=== PATIENT | female | born 1980 | race Caucasian/White ===

== ENCOUNTER 2016-10-16 12:03 | Inpatient (IN) | payer OTHER ==
[2016-10-11 17:25] LABS: BASOPHILS 0.3 %; BASOPHILS ABSOLUTE 0.04 10/3/uL (0.0-0.16); EOSINOPHILS 3.2 %; EOSINOPHILS ABSOLUTE 0.47 10/3/uL (0.0-0.53); HEMATOCRIT 34.7 % (36.0-48.0); IMMATURE GRANULOCYTES 0.4 %; IMMATURE GRANULOCYTES ABSOLUTE 0.06 10/3/uL (0.0-0.11); LYMPHOCYTES ABSOLUTE 4.38 10/3/uL (0.67-4.30); MEAN CORPUS HGB CONC 31.7 g/dL (32.0-36.0); MEAN CORPUSCULAR HEMOGLOB 24.7 pg (26.0-34.0); MEAN PLATELET VOLUME 9.3 fL (9.2-13.0); MONOCYTES 4.8 %; NEUTROPHILS 61.3 %; NEUTROPHILS ABSOLUTE 8.93 10/3/uL (2.02-8.40); PLATELET COUNT 345 10/3/uL (150-400); RBC DISTRIBUTION WIDTH 16.8 % (12.0-16.0); RED CELL COUNT 4.45 10/6/uL (4.0-5.6); WHITE BLOOD CELLS 14.6 10/3/uL (4.5-10.5)
[2016-10-11 17:32] LABS: MANUAL DIFF NO %
[2016-10-11 17:36] LABS: INTERNATIONAL NORMAL RATI 1.1 UNITS (-); PARTIAL THROMBO TIME 36.5 SEC (22.5-37.2); PROTIME (NOT ORD) 13.9 SEC (12.0-14.5)
[2016-10-11 17:48] LABS: CALCIUM, SERUM 9.1 MG/DL (8.5-10.4); CHLORIDE, SERUM 106 MMOL/L (96-112); CO2 (CARBON DIOXIDE) 24 MMOL/L (24-34); GFR AFRICAN AMERICAN 131 ML/MIN (>=60); GFR NON AFRICAN AMERICAN 113 ML/MIN (>=60); GLUCOSE, SERUM 164 MG/DL (60-99); SODIUM, SERUM 140 MMOL/L (135-148)
[2016-10-11 17:49] LABS: BUN (BLOOD UREA NITROGEN) 14 MG/DL (6-23)
[2016-10-11 18:53] LABS: ASCORBIC ACID (UR NOT ORDER) NEG (NEG); BILIRUBIN, URINE NEGATIVE (NEG); KETONE, URINE NEGATIVE (NEG); LEUKOCYTE ESTERASE(NOT OR NEG (NEG); WBC (NOT ORDERED) (RFLEX) < 1 (0-5)
--- NOTE | ~2016-10-16 | OP ---
Record Of Operation [facility] [address] [place]. [address] NAME: DIONICIO NIXON : 84 STATUS : ADM Darlene PAT#: [id number] AGE: 36 ADM/REG DATE : 10/16/16 MR#: [id number] REPORT SERV DATE: 10/18/16 DICTATED BY: JOSEF LEHMAN DATE: 10/18/16 REPORT STATUS : Draft TRANSCRIBED BY: MODL DATE: 10/18/16 DATE OF PROCEDURE: 10/16/2016 PREOPERATIVE DIAGNOSIS: Microinvasive ovarian cancer. POSTOPERATIVE DIAGNOSIS: Microinvasive ovarian cancer. PROCEDURE: Robot assisted laparoscopic hysterectomy with right salpingo-oophorectomy, CPT code 20281. Bilateral pelvic and periaortic lymph node dissection, CPT code 44917. Omentectomy, CPT code 79356. Cystoscopy. SURGEON: Josef Lehman MD. ANESTHESIA: General. ESTIMATED BLOOD LOSS: 50 mL. CRYSTALLOID: 1200 mL. URINE OUTPUT: 400 mL. DRAINS: Gould. FINDINGS: No evidence of peritoneal, right ovarian, fallopian tube disease. Her omentum was grossly normal. There were some adhesions of the omentum to the anterior abdominal wall with no evidence of gross tumor. The peritoneal surfaces in the upper abdomen were examined and found to be normal in appearance. PATHOLOGY: Uterus, uterine cervix, right fallopian tube and ovary. Bilateral pelvic lymph nodes. Bilateral periaortic lymph nodes. Infracolic omentum. Pelvic washings. COMPLICATIONS: None. POSTOPERATIVE PLAN: Extubated to PACU. PROCEDURE IN DETAIL: After informed consent was signed, the patient was taken to the operating room and placed in dorsal supine position where adequate general anesthesia was administered. She was then placed in dorsal lithotomy position in [facility] and prepped and draped in the usual fashion and a Gould catheter was placed. The uterus was sounded, cervix dilated, and the ANYA uterine manipulator was assembled and deployed. The left upper quadrant incision was made with a scalpel and carried down to the fascia which was incised, muscle , posterior sheath entered sharply, trocar placed, and abdomen insufflated with CO2 gas. Additional robot trocars were placed in the supraumbilical region, the bilateral upper quadrants, and the right lateral flank, all under direct visualization. The patient was placed in steep Trendelenburg and the robot docked in the usual fashion. The pelvic peritoneum overlying the midportion of the right common iliac Record Of Operation [facility] [address] [place]. [address] NAME: DIONICIO NIXON : 84 STATUS : ADM Darlene PAT#: [id number] AGE: 36 ADM/REG DATE : 10/16/16 MR#: [id number] REPORT SERV DATE: 10/18/16 DICTATED BY: JOSEF LEHMAN DATE: 10/18/16 REPORT STATUS : Draft TRANSCRIBED BY: MONIKA DATE: 10/18/16 artery was incised and taken down to the level of the right common iliac artery. This incision was then extended up and over the right common iliac artery over the aorta to the level of the inferior mesenteric artery. Both ureters were identified and reflected laterally. All lymphatic tissue overlying the left and right sides of the aorta and anterior to the vena cava was removed using monopolar scissors and blunt dissection. These lymph nodes were taken out through the marketing administrative assistant port. Next, bilateral round ligaments were taken with bipolar cautery, transected with monopolar scissors, and the pelvic peritoneum taken down lateral and parallel to the infundibulopelvic ligaments. The remnant infundibulopelvic ligament on the left side as well as the IP ligament on the right side were isolated, taken with bipolar cautery, and transected with monopolar scissors, and the broad ligament taken down to the level of the cervix with the ureters identified and reflected medially. Clips were placed in the origins of the uterine arteries bilaterally. The posterior colpotomy was then made with monopolar scissors. Next, the vesicouterine peritoneum was incised and the bladder taken down well beneath the level of the anterior VIRGILIO ring and the anterior colpotomy was made. The uterine vessels were then taken at the cervix with bipolar cautery, transected with monopolar scissors, and the parametria reflected off the cervical stroma. The anterior and posterior colpotomy was then connected using monopolar scissors, and the uterus, uterine cervix, and right adnexa were then brought out through the vagina. Next, a complete pelvic lymphadenectomy was performed. Specifically all lymphatic tissue from the midportion of the common iliac arteries superiorly down to the deep circumflex iliac vein inferiorly, from the psoas muscles laterally to the superior vesical arteries medially, and the obturator nerves posteriorly removed using monopolar scissors and blunt dissection where appropriate. These lymph nodes were then placed into their respective EndoCatch bags and brought out through the vagina. Next, the transverse colon was identified and an infracolic omentectomy was performed in the usual fashion using bipolar cautery and monopolar scissors. The omentum was then brought out through the vagina. The pelvis was irrigated. Excellent hemostasis was noted. All lymphatic beds were then examined and found to be without evidence of bleeding. The vagina was then closed with 0 180 V-Loc suture with a running stitch. All instruments removed from the abdomen and the robot was undocked. The Gould catheter was removed and the cystoscope placed through the urethra and the bladder distended with appropriate media. Bilateral brisk ureteral jets were noted suggesting bilateral ureteral patency. The cystoscope was removed and the bladder drained. The CO2 gas was then reintroduced into the abdomen and using the laparoscope, the pelvis and all lymphatic beds were examined and found to be hemostatic. The laparoscope was then removed along with all trocars and the CO2 gas evacuated. The fascia from the left upper quadrant incision was closed with 0 Vicryl suture and the skin from all trocar sites was closed with 4-0 Monocryl and Dermabond. The patient tolerated the procedure well, was awakened, extubated, and sent to the PACU in stable condition. Record Of Operation [address] [address] NAME: DIONICIO NIXON : 84 STATUS : ADM Darlene PAT#: [id number] AGE: 36 ADM/REG DATE : 10/16/16 MR#: [id number] REPORT SERV DATE: 10/18/16 DICTATED BY: JOSEF LEHMAN DATE: 10/18/16 REPORT STATUS : Draft TRANSCRIBED BY: MONIKA DATE: 10/18/16 TL/MONIKA Josef Lehman MD / [id number] CC: MD JUWAN Wilkerson
[~2016-10-16 12:03] MED LIST: AMB10 PO; APIDRA SC; ESKALITH PO; GLUCOPHAGE1000 MG PO; IBU600 PO; LANTUS SC; LYRICA100 MG PO; METHOC750B PO; NEUR800 PO; NORCO1 TAB PO; PR25 PO; PRIN10 PO; VICTOZA18 MG/3 ML SC; [UNRECOGNIZED DRUG - CODE] PO
[2016-10-17 04:49] LABS: BASOPHILS 0.1 %; BASOPHILS ABSOLUTE 0.02 10/3/uL (0.0-0.16); EOSINOPHILS 0 %; HEMATOCRIT 31.6 % (36.0-48.0); HEMOGLOBIN 10.1 g/dL (12.0-16.0); IMMATURE GRANULOCYTES 0.5 %; IMMATURE GRANULOCYTES ABSOLUTE 0.08 10/3/uL (0.0-0.11); LYMPHOCYTES 14.3 %; LYMPHOCYTES ABSOLUTE 2.44 10/3/uL (0.67-4.30); MANUAL DIFF NO %; MEAN CORPUSCULAR HEMOGLOB 24.8 pg (26.0-34.0); MEAN CORPUSCULAR VOLUME 77.5 fL (80-100); MEAN PLATELET VOLUME 9.3 fL (9.2-13.0); MONOCYTES 5.6 %; MONOCYTES ABSOLUTE 0.95 10/3/uL (0.21-1.20); NEUTROPHILS 79.5 %; NEUTROPHILS ABSOLUTE 13.54 10/3/uL (2.02-8.40); PLATELET COUNT 335 10/3/uL (150-400); RBC DISTRIBUTION WIDTH 16.8 % (12.0-16.0); RED CELL COUNT 4.08 10/6/uL (4.0-5.6)
[2016-10-17 05:15] LABS: CALCIUM, SERUM 8.4 MG/DL (8.5-10.4); CHLORIDE, SERUM 110 MMOL/L (96-112); CO2 (CARBON DIOXIDE) 23 MMOL/L (24-34); CREATININE 0.72 MG/DL (0.55-1.02); GFR AFRICAN AMERICAN 127 ML/MIN (>=60); GFR NON AFRICAN AMERICAN 109 ML/MIN (>=60); POTASSIUM, SERUM 3.9 MMOL/L (3.5-5.3); SODIUM, SERUM 142 MMOL/L (135-148)
[2016-10-17 05:19] LABS: BUN (BLOOD UREA NITROGEN) 10 MG/DL (6-23); GLUCOSE, SERUM 226 MG/DL (60-99)
[2016-10-17] MEDS ORDERED: PCET PO (09:03)
[2016-10-17] MEDS ORDERED: DIL2TAB PO (09:04)
[2016-10-17] MEDS ORDERED: COMP10B PO (09:04)
[2016-10-19] MEDS ORDERED: PCET PO (12:04)
[2016-10-19] MEDS ORDERED: COMP10B PO (12:04)
== END 2016-10-19 13:37 | disposition home or self-care (01) | DRG 734 ==
LOC: SDC 12:03 → 4EA 18:54
PROVIDERS: Obstetrics & Gynecology Gynecology
PROC: 0UT04ZZ Resection of Right Ovary, Percutaneous Endoscopic Approach (ICD-10-PCS; 2016-10-16)
PROC: 07TC4ZZ Resection of Pelvis Lymphatic, Percutaneous Endoscopic Approach (ICD-10-PCS; 2016-10-16)
PROC: 0UT54ZZ Resection of Right Fallopian Tube, Percutaneous Endoscopic Approach (ICD-10-PCS; 2016-10-16)
PROC: 0DBS4ZZ (ICD-10-PCS; 2016-10-16)
PROC: 0UT94ZZ Resection of Uterus, Percutaneous Endoscopic Approach (ICD-10-PCS; principal; 2016-10-16 13:45)
PROC: 0UTC4ZZ Resection of Cervix, Percutaneous Endoscopic Approach (ICD-10-PCS; 2016-10-16 13:45)
DX: C56.9 Malignant neoplasm of unspecified ovary (principal); Z68.41 Body mass index [BMI] 40.0-44.9, adult; E11.42 Type 2 diabetes mellitus with diabetic polyneuropathy; N83.11 Corpus luteum cyst of right ovary; I10 Essential (primary) hypertension; K21.9 Gastro-esophageal reflux disease without esophagitis; F31.9 Bipolar disorder, unspecified; F17.210 Nicotine dependence, cigarettes, uncomplicated; E78.5 Hyperlipidemia, unspecified; E78.00 Pure hypercholesterolemia, unspecified; E66.01 Morbid (severe) obesity due to excess calories; Z79.4 Long term (current) use of insulin; Z79.84 Long term (current) use of oral hypoglycemic drugs; Z79.899 Other long term (current) drug therapy; Z90.721 Acquired absence of ovaries, unilateral; Z98.890 Other specified postprocedural states
CPT/HCPCS: 36415; 80048; 81001; 82962; 84703; 85025; 85610; 85730; 86850; 86900; 86901; 88112; 88305; 88307; 88309; 93005; 96374; 96375; 96376; A9270-GY; G0378; J0690; J0694; J1885; J2250; J2405; J2550; J2710; J2795; J3010